=== PATIENT | female | born 1990 | race Caucasian/White ===

== ENCOUNTER 2017-06-07 17:19 | Emergency (ER) | payer MEDICAID ==
[2017-06-07 20:52] LABS: URINE BLOOD (Dip) POC Negative (NEGATIVE); URINE GLUCOSE (Dip) POC Negative (NEGATIVE); URINE KETONES (Dip) POC Negative (NEGATIVE); URINE LEUKOCYTE EST (Dip) POC Negative (NEGATIVE); URINE NITRITE (Dip) POC Negative (NEGATIVE); URINE TOTAL PROTEIN POC Negative (NEGATIVE)
[2017-06-07] MEDS: AZITHROMYCIN 250 MG TAB PO (21:50)
[2017-06-07] MEDS: LIDOCAINE 1% (MDV) 20 ML INJ SC (22:00)
[2017-06-07] MEDS: CEFTRIAXONE 250 MG INJ IM (22:00)
== END 2017-06-07 22:26 | disposition home or self-care (01) ==
LOC: FTE 17:19
DX: R30.0 Dysuria (principal); R10.2 Pelvic and perineal pain
CPT/HCPCS: 81003; 87086; 87591; 96372; 99284-25